=== PATIENT | female | born 1960 | race Caucasian/White ===

== ENCOUNTER 2018-04-06 11:40 | Emergency (ER) | END 2018-04-06 12:56 | disposition home or self-care (01) ==

== ENCOUNTER 2018-07-05 09:05 | Day surgery (SDC) | payer OTHER ==
[~2018-07-05] VITALS: Ht 162.6 cm; Wt 76.9 kg
[~2018-07-05 09:05] MED LIST: IBUP-1542 PO
[2018-07-05 09:48] VITALS: Ht 162.6 cm; Wt 76.9 kg
[2018-07-05] MEDS ORDERED: losartan PO (09:55)
[2018-07-05 10:07] VITALS: BP 146/66; PULSE 64; RESP 18
[2018-07-05] MEDS ORDERED: FENTAnyl 50 MCG/ML VIAL ONE (10:42)
[2018-07-05] MEDS ORDERED: MIDAZOLAM 1 MG/ML 2 ML INJ ONE (10:42)
[2018-07-05 11:00] VITALS: BP 116/71; RESP 15
== END 2018-07-05 11:43 | disposition home or self-care (01) ==
LOC: GIL 09:05
PROVIDERS: ATTEND Internal Medicine Gastroenterology
DX: Z12.11 Encounter for screening for malignant neoplasm of colon (principal); D12.4 Benign neoplasm of descending colon; K57.30 Diverticulosis of large intestine without perforation or abscess without bleeding
CPT/HCPCS: 45380; 88305; J2250; J3010; Z7610